=== PATIENT | female | born 1995 | race Caucasian/White ===

== ENCOUNTER 2017-01-15 12:28 | Emergency (ER) | payer MEDICAID ==
[2017-01-15 12:35] VITALS: BP 121/72; PULSE 72; RESP 16; TEMP 98.1; O2SAT 98
--- NOTE | 2017-01-15 13:21 | EDPHY ---
H & P Smoking Status: Never smoked Time Seen by Provider: 01/15/17 12:58 HPI/ROS: HPI Right knee laceration. 21-year-old female by private vehicle with her boyfriend. This patient reports that she was trying to climb over a metal fence at a football game. She got her right anterior mid knee caught on a piece of metal. She sustained a full- thickness laceration to the anterior mid knee just over the patella. She states that she has had a tetanus shot in the last 5 years. 2013 specifically. She denies any loss of sensation or weakness distal to the injury. She denies any pain with flexion/extension of the knee joint. No other complaints. ROS: Constitutional: No fever, no chills. No weakness. Musculoskeletal: No back pain. No neck pain. As above. Skin: As above. Neurological: No focal weakness or altered sensation. Past medical history: Denies any significant past medical history. Social history: [employer]. Here with boyfriend. Nonsmoker. Physical Exam: General Appearance: Alert, no distress. This patient is responding to questions appropriately and in full sentences. This patient appears well- hydrated and well-nourished. Eyes: Pupils equal and round no pallor or injection. No lid edema, erythema or injection. Right knee exam: Full-thickness jagged a elliptical laceration measuring approximately 3.5 cm just over the mid patella. This laceration is to the subcutaneous fat. No bony or joint involvement. No foreign body on gross exploration. The right knee joint ranges without significant pain or impingement. No ligamentous laxity on anterior posterior drawer testing and valgus and varus stress testing. Right lower extremity is neurovascularly intact. Neurological: Motor sensory function is grossly intact. Cranial nerves are normal. Gait is normal. Skin: Warm and dry, no rashes. As above. Extremities are symmetrical. All joints range without pain or impingement. Psychiatric: No agitation. No depression. Database: EKG: Imaging: Right knee x-ray series: Negative for radiopaque foreign body. Negative for fracture, subluxation, dislocation. Interpreted by me. Procedures: Please see procedure note by physician perinatal breastfeeding assistant Davina Flores. Emergency department course: After suture repair as above, wound care was discussed with the patient in detail. Follow-up and return to emergency department precautions reviewed. All of her questions were answered. Appropriate sterile dressing was placed over the wound. She was discharged in good condition with her boyfriend. Differential Diagnosis: The differential diagnosis on this patient includes but is not limited to right knee laceration. Retained foreign body, significant neurovascular injury, fracture, dislocation unlikely. This represents a partial list of diagnoses considered. These considerations are based on history, physical exam, past history, reassessment and diagnostic testing. (Sai Emery) Constitutional: Initial Vital Signs Temperature (C) 36.7 C 01/15/17 12:30 Heart Rate 72 01/15/17 12:30 Respiratory Rate 16 01/15/17 12:30 Blood Pressure 121/72 H 01/15/17 12:30 O2 Sat (%) 98 01/15/17 12:30 O2 Delivery Mode Room Air Allergies/Adverse Reactions: acetaminophen [From Vicodin] Allergy (Mild, Verified 01/15/17 12:33) n/v hydrocodone [From Vicodin] Allergy (Mild, Verified 01/15/17 12:33) n/v Home Medications: Medication Instructions Recorded Iud 01/15/17 - Diagnostics Imaging Results: Imaging Impressions Knee X-Ray 01/15/17 13:11 Impression: 1. Anterior medial laceration near the cortex of the anterior medial patella. 2. No evidence of patellar fracture. 3. No definite knee fracture. Departure - Departure Disposition: Home, Routine, Self-Care Clinical Impression: Laceration of right knee Condition: Good Instructions: Care For Your Stitches (ED), Laceration (ED) Additional Instructions: Keep the dressing in place for 48 hours. After 48 hours, you may remove the dressing; wash the site daily with mild soap and water; then pat dry. Take ibuprofen 600-800 mg every 6-8 hours with food as needed for pain and inflammation. Apply ice for 30 minutes at a time; 2-3 times per day for the next 1-2 days. Sutures need to be removed in 10-14 days. You may return to the emergency department to have the sutures removed. The x-rays obtained in the emergency department today demonstrate no evidence of an obvious fracture. Sometimes fractures are not obvious on the initial set of x-rays performed in the ED. For this reason, you should have repeat x-rays performed in 7-10 days if you are having any pain exclude the possibility of an occult fracture. Referrals: [facility],. [Clinic] - As per Instructions
--- NOTE | 2017-01-15 14:01 | EDPHY ---
ED Progress Note Narrative: Procedure: Laceration repair. Verbal consent was obtained from the patient. The deep vertical 4 cm laceration on the right anterior knee was anesthetized in the usual fashion using bupivacaine. The wound was irrigated, draped and explored to its base with a gloved finger. There were no deep structures involved. No foreign bodies were identified. No tendon injury was identified. The wound was repaired with #10, 4-0 Prolene in simple interrupted pattern. Good hemostasis was achieved patient tolerated procedure well. Xeroform, gauze and Kerlix were applied. The procedure was performed by myself.
== END 2017-01-15 14:37 | disposition home or self-care (01) ==
PROC: 0HQKXZZ Repair Right Lower Leg Skin, External Approach (ICD-10-PCS; principal; 2017-01-15)
DX: S81.011A Laceration without foreign body, right knee, initial encounter (principal); W26.8XXA Contact with other sharp object(s), not elsewhere classified, initial encounter; Y92.89 Other specified places as the place of occurrence of the external cause; Y99.8 Other external cause status; Y93.39 Activity, other involving climbing, rappelling and jumping off
CPT/HCPCS: L1830